=== PATIENT | female | born 1995 | race Caucasian/White ===

== ENCOUNTER 2016-06-02 10:38 | Emergency (ER) | payer OTHER ==
[2016-06-02 11:56] LABS: HEMOGLOBIN 11.2 gm/dl (12.3-15.3); RED BLOOD COUNT 3.58 M/UL (4.00-5.10); WHITE BLOOD COUNT 10.8 K/UL (4.5-11.0)
[2016-06-02 13:04] LABS: BUN/CREATININE RATIO 13 (0-10)
[2016-10-04] MEDS ORDERED: COLACE 100MG C100 MG PO (15:40)
== END 2016-06-02 13:45 | disposition home or self-care (01) ==
LOC: ER1 10:38
PROVIDERS: Emergency Medicine
DX: O99.612 Diseases of the digestive system complicating pregnancy, second trimester (principal); K05.219 Aggressive periodontitis, localized, unspecified severity; M27.2 Inflammatory conditions of jaws; O99.332 Smoking (tobacco) complicating pregnancy, second trimester; F17.200 Nicotine dependence, unspecified, uncomplicated; Z3A.20 20 weeks gestation of pregnancy
CPT/HCPCS: 36415; 80048; 85025; 87070; 87077; 87205; 96374; 99282

== ENCOUNTER 2016-06-12 05:29 | Outpatient (CLI) | payer OTHER ==
[2016-10-04] MEDS ORDERED: COLACE 100MG C100 MG PO (15:40)
== END 2016-06-12 07:33 | disposition home or self-care (01) ==
LOC: GENOP 05:29
PROVIDERS: Obstetrics & Gynecology
DX: O42.912 Preterm premature rupture of membranes, unspecified as to length of time between rupture and onset of labor, second trimester (principal); Z3A.21 21 weeks gestation of pregnancy
CPT/HCPCS: 80307; 81001; 83518; G0463

== ENCOUNTER 2016-07-13 01:36 | Emergency (ER) | payer OTHER ==
[2016-10-04] MEDS ORDERED: COLACE 100MG C100 MG PO (15:40)
== END 2016-07-13 04:24 | disposition home or self-care (01) ==
LOC: ER1 01:36
DX: O99.89 Other specified diseases and conditions complicating pregnancy, childbirth and the puerperium (principal); O99.332 Smoking (tobacco) complicating pregnancy, second trimester; S05.91XA Unspecified injury of right eye and orbit, initial encounter; F17.210 Nicotine dependence, cigarettes, uncomplicated; Z3A.27 27 weeks gestation of pregnancy; Z77.098 Contact with and (suspected) exposure to other hazardous, chiefly nonmedicinal, chemicals; X58.XXXA Exposure to other specified factors, initial encounter
CPT/HCPCS: 99283; J7120